=== PATIENT | female | born 1955 | race Caucasian/White ===

== ENCOUNTER 2019-08-31 08:16 | Day surgery (SDC) | payer MEDICARE | END 2019-08-31 23:14 | disposition home or self-care (01) | LOC: MOI US 08:16 → MOI MAM 08:30 → MOI US 08:30 | DX: C50.911 Malignant neoplasm of unspecified site of right female breast (principal); Z17.0 Estrogen receptor positive status [ER+] | CPT/HCPCS: 19083; 77065; 88305; 88342; 88360; A4648; G0279 ==

== ENCOUNTER → 2022-03-17 | Outpatient (CLI) | payer MEDICARE | END | disposition home or self-care (01) | LOC: LAB SHORT 18:25 → LAB 18:25 | DX: R30.0 Dysuria (principal) | CPT/HCPCS: 87077; 87086; 87186 ==